=== PATIENT | male | born 1965 | race Caucasian/White ===

== ENCOUNTER 2017-06-21 23:22 | Inpatient (IN) ==
[2017-06-21] MEDS ORDERED: 0.9 % Sodium Chloride 1,000 ML IVC ONE (23:27)
[2017-06-21 23:48] LABS: Basophils # 0.1 K/mcL (0.0-0.2); Basophils % 0.5 %; Eosinophils # 0.2 K/mcL (0.0-0.6); Eosinophils % 1.2 %; Hematocrit 41.2 % (37.5-50.1); Hemoglobin 13.1 g/dL (12.9-16.9); Immature Granulocytes % 0.5 % (0-4); Lymphocytes # 3.3 K/mcL (0.6-4.6); Lymphocytes % 22.1 %; Mean Corpuscular HGB Conc 31.8 g/dL (31.6-35.5); Mean Corpuscular Hemoglobin 24.3 pg (28.0-33.3); Mean Corpuscular Volume 76.4 fL (83.0-100.0); Mean Platelet Volume 10.4 fL (9.4-12.4); Monocytes % 6.5 %; Neutrophils # 10.3 K/mcL (1.6-8.9); Platelet Count 404 K/mcL (140-400); Red Blood Count 5.39 M/mcL (4.19-5.50); Red Cell Distribution Width 16.3 % (11.5-14.5); Segmented Neutrophils % 69.2 %
[2017-06-21 23:53] LABS: INR 1.1; Prothrombin Time 11.4 Seconds (9.4-12.1)
[2017-06-22] MEDS ORDERED: 0.9 % Sodium Chloride 1,000 ML IVC ONE ×2 (00:11→00:57)
[2017-06-22 00:16] LABS: Alanine Aminotransferase 23 Units/L (7-52); Albumin 3.5 g/dL (3.5-5.7); Albumin/Globulin Ratio 1.3 (1.1-2.2); Alkaline Phosphatase 75 Units/L (34-104); Aspartate Amino Transferase 17 Units/L (13-39); BUN/Creatinine Ratio 14 (6-26); Bilirubin,Indirect 0.3 mg/dL (0.0-1.2); Bilirubin,Total 0.3 mg/dL (0.3-1.0); Blood Urea Nitrogen 17 mg/dL (6-20); Calcium 8.5 mg/dL (8.6-10.3); Carbon Dioxide 18 mEq/L (23-29); Chloride 108 mEq/L (98-107); Globulin 2.6 g/dL (2.4-3.5); Glucose 137 mg/dL (70-105); Lipase 24 Units/L (11-82); Osmolality,Calculated 286 (280-300); Sodium 136 mEq/L (136-145); Total Protein 6.1 g/dL (6.4-8.9); eGFR For African Americans > 60 (> 60); eGFR For Non-African Americans > 60 (> 60)
--- NOTE | 2017-06-22 00:19 | Emergency Department Note ---
Disposition Clinical Impression: Mesenteric hemorrhage, Lactic acidosis Syncope Qualifiers: Syncope type: unspecified Qualified Code(s): R55 - Syncope and collapse Abdominal hernia Qualifiers: Hernia type: other abdominal hernia Obstruction and gangrene presence: with obstruction but without gangrene Qualified Code(s): K45.0 - Other specified abdominal hernia with obstruction, without gangrene Disposition: Admitted As Inpatient Condition: Fair Time of Disposition: 01:24 Abdominal Pain HPI - General Chief Complaint: ED Abdominal Pain Stated Complaint: abd pain, syncope Time Seen by Provider: 06/21/17 23:25 Source: patient Mode of arrival: ambulatory Limitations: no limitations Nursing Notes Reviewed: Yes Vital Signs Reviewed: Yes - History of Present Illness HPI Narrative: 51-year-old male with history of Crohn's disease presents to the 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 He was brought pale and weak, he states he is having diffuse abdominal pain he reports a 6 out of 10 , he has no emesis, he denies fever chills recent productive cough. Pt Subjective Complaint: abdominal pain Onset (ago): hour(s) Consistency: intermittent Location: RUQ Pain Severity: moderate Pain Scale: 8 Quality: stabbing, aching Improves with: nothing Worsens with: nothing Associated symptoms: Reports: nausea. Denies: vomiting, diarrhea, fever, chills Treatments prior to arrival: none - Related Data Allergies Allergy/AdvReac Type Severity Reaction Status Date / Time No Known Allergies Allergy Verified 06/21/17 23:26 All systems ED: reviewed and negative except as stated. Review of Systems: As Per HPI Constitutional: Denies: fever, chills Eyes: Denies: eye pain ENT ED: Denies: ear pain Cardiovascular: Denies: chest pain Respiratory: Denies: cough Gastrointestinal: Reports: as per HPI, abdominal pain, nausea. Denies: hematemesis, melena Genitourinary: Denies: urgency Musculoskeletal: Denies: back pain, neck pain Integumentary: Denies: rash, abrasion Neurological: Denies: headache Psychiatric: Denies: anxiety Endocrine: Denies: fatigue Abdominal Pain PMH - Past Medical History Medical history: Reports: hypertension, other Male Surgical History: Reports: other - Social History Smoking status: Never smoker Alcohol use: Reports: none Drug use: Reports: none Physical Exam - General Limitations: no limitations General appearance: alert, in no apparent distress - Head Head exam: atraumatic - Eye Eye exam: Present: normal appearance - ENT ENT exam: normal exam, normal oropharynx - Neck Neck exam: Present: normal inspection, full ROM - Chest Chest inspection: Present: normal inspection - Respiratory Respiratory exam: Present: normal lung sounds bilaterally - Cardiovascular Cardiovascular exam: Present: regular rate, normal rhythm - Abdominal Exam Abdominal exam: Present: soft, tenderness, distention, hypoactive bowel sounds, hernia (Right abdomen able to partially reduce). Absent: guarding, rebound Abdominal tenderness: Present: diffuse, moderate Course Course Narrative: 51-year-old male status post syncopal event, he is brought in by the hospitalist to the emergency department, is hypotensive at 90/60, initial IVs and fluid resuscitation was initiated, patient has evidence of a right-sided abdominal wall hernia, and diffuse abdominal pain but no peritoneal signs, patient will be given IV fluids aching lab work CBC BMP lactic acid. - Reevaluation(s) Reevaluation #1: The patient had evidence of lactic acidosis at 2.7, leukocytosis of 14,000 was started on Zosyn empirically for coverage for potential infection intra- abdominal, he shows evidence of mesenteric bleeding and abdominal wall hernia that is incarcerated, I did discuss the case with the general surgeon Dr. Byrnes who recommended the patient be admitted to medicine service after speaking with the medicine service, they recommended transfer the patient because the patient was not can be evaluated by surgeon immediately, during this time we continued to resuscitate the patient he weighs 134 kg therefore gets 4 L of fluid for hypotension, after 2 L drain his blood pressure is now 112/70, he has more color in his face and the less pale, he is in no acute distress at this time, his abdominal pain is improved, we called the general surgeon back Dr. Jones who agreed to accept the patient to his service, on 3a indication for telemetry at this time as the patient is hemodynamically stable patient will continue IV fluid resuscitation broad-spectrum antibiotic coverage plan for admission to the general surgeon Vital Signs Temperature 97.5 F L 06/21/17 23:23 Pulse Rate 98 06/21/17 23:23 Respiratory Rate 20 06/21/17 23:23 Blood Pressure 95/69 06/21/17 23:23 O2 Sat by Pulse Oximetry 93 06/21/17 23:23 Temperature 98.1 F 06/22/17 02:49 Pulse Rate 82 06/22/17 02:49 Respiratory Rate 17 06/22/17 02:49 Blood Pressure 130/67 06/22/17 02:49 O2 Sat by Pulse Oximetry 95 06/22/17 02:49 Oxygen Delivery Oxygen Delivery Nasal Cannula Abdominal Pain - Differential Diagnosis Differential Diagnosis: Likely: abdominal pain non-specific, acute appendicitis , diverticulitis - Medical Records Medical records reviewed: Yes I reviewed the patient's medical records. - Lab Data Lab results reviewed: Yes I reviewed the patient's lab results. Result diagrams: 06/21/17 23:41 06/21/17 23:41 Lab Results 06/21/17 06/21/17 06/21/17 Range/Units 23:41 23:41 23:41 WBC (4.3-11.1) K/mcL RBC (4.19-5.50) M/mcL Hgb (12.9-16.9) g/dL Hct (37.5-50.1) % MCV (83.0-100.0) fL MCH (28.0-33.3) pg MCHC (31.6-35.5) g/dL RDW (11.5-14.5) % Plt Count (140-400) K/mcL MPV (9.4-12.4) fL Immature Gran % (0-4) % Seg Neutrophils % % Lymphocytes % % Monocytes % % Eosinophils % % Basophils % % Neutrophils # (1.6-8.9) K/mcL Lymphocytes # (0.6-4.6) K/mcL Monocytes # (0.0-1.3) K/mcL Eosinophils # (0.0-0.6) K/mcL Basophils # (0.0-0.2) K/mcL PT 11.4 (9.4-12.1) Seconds INR 1.1 APTT 24.0 L (26.0-36.0) Seconds Sodium (136-145) mEq/L Potassium (3.5-5.1) mEq/L Chloride (98-107) mEq/L Carbon Dioxide (23-29) mEq/L BUN (6-20) mg/dL Creatinine (0.70-1.30) mg/dL Est GFR ( Amer) (> 60) Est GFR (Non-Af Amer) (> 60) BUN/Creatinine Ratio (6-26) Glucose (70-105) mg/dL Calculated Osmolality (280-300) Lactic Acid 2.6 H (0.5-2.2) mmol/L Calcium (8.6-10.3) mg/dL Total Bilirubin (0.3-1.0) mg/dL Direct Bilirubin (0.0-0.2) mg/dL Indirect Bilirubin (0.0-1.2) mg/dL AST (13-39) Units/L ALT (7-52) Units/L Alkaline Phosphatase (34-104) Units/L Troponin I < 0.03 (< 0.04) ng/mL Serum Total Protein (6.4-8.9) g/dL Albumin (3.5-5.7) g/dL Globulin (2.4-3.5) g/dL Albumin/Globulin Ratio (1.1-2.2) Lipase (11-82) Units/L Urine Color (Yellow) Urine Clarity (Clear) Urine pH (5.0-8.0) pH Units Ur Specific [place] (1.010-1.025) Urine Protein (Neg-Trace) mg/dL Urine Glucose (UA) (Normal) mg/dL Urine Ketones (Negative) mg/dL Urine Blood (Negative) Urine Nitrite (Negative) Urine Bilirubin (Negative) Urine Urobilinogen (Normal) mg/dL Ur Leukocyte Esterase (Negative) Urine Microscopic RBC (0-3) per hpf Urine Microscopic WBC (0-3) per hpf Ur Squamous Epith Cells (None-Few) per lpf Urine Bacteria (None-Few) per hpf Hyaline Casts Ur Culture Indicated? (NO) 06/21/17 06/21/17 06/22/17 Range/Units 23:41 23:41 00:29 WBC 14.9 H (4.3-11.1) K/mcL RBC 5.39 (4.19-5.50) M/mcL Hgb 13.1 (12.9-16.9) g/dL Hct 41.2 (37.5-50.1) % MCV 76.4 L (83.0-100.0) fL MCH 24.3 L (28.0-33.3) pg MCHC 31.8 (31.6-35.5) g/dL RDW 16.3 H (11.5-14.5) % Plt Count 404 H (140-400) K/mcL MPV 10.4 (9.4-12.4) fL Immature Gran % 0.5 (0-4) % Seg Neutrophils % 69.2 % Lymphocytes % 22.1 % Monocytes % 6.5 % Eosinophils % 1.2 % Basophils % 0.5 % Neutrophils # 10.3 H (1.6-8.9) K/mcL Lymphocytes # 3.3 (0.6-4.6) K/mcL Monocytes # 1.0 (0.0-1.3) K/mcL Eosinophils # 0.2 (0.0-0.6) K/mcL Basophils # 0.1 (0.0-0.2) K/mcL PT (9.4-12.1) Seconds INR APTT (26.0-36.0) Seconds Sodium 136 (136-145) mEq/L Potassium 4.0 (3.5-5.1) mEq/L Chloride 108 H (98-107) mEq/L Carbon Dioxide 18 L (23-29) mEq/L BUN 17 (6-20) mg/dL Creatinine 1.19 (0.70-1.30) mg/dL Est GFR ( Amer) > 60 (> 60) Est GFR (Non-Af Amer) > 60 (> 60) BUN/Creatinine Ratio 14 (6-26) Glucose 137 H (70-105) mg/dL Calculated Osmolality 286 (280-300) Lactic Acid (0.5-2.2) mmol/L Calcium 8.5 L (8.6-10.3) mg/dL Total Bilirubin 0.3 (0.3-1.0) mg/dL Direct Bilirubin 0.0 (0.0-0.2) mg/dL Indirect Bilirubin 0.3 (0.0-1.2) mg/dL AST 17 (13-39) Units/L ALT 23 (7-52) Units/L Alkaline Phosphatase 75 (34-104) Units/L Troponin I (< 0.04) ng/mL Serum Total Protein 6.1 L (6.4-8.9) g/dL Albumin 3.5 (3.5-5.7) g/dL Globulin 2.6 (2.4-3.5) g/dL Albumin/Globulin Ratio 1.3 (1.1-2.2) Lipase 24 (11-82) Units/L Urine Color Yellow (Yellow) Urine Clarity Cloudy A (Clear) Urine pH 6.5 (5.0-8.0) pH Units Ur Specific [place] 1.026 H (1.010-1.025) Urine Protein 100 H (Neg-Trace) mg/dL Urine Glucose (UA) 100 H (Normal) mg/dL Urine Ketones Negative (Negative) mg/dL Urine Blood Negative (Negative) Urine Nitrite Negative (Negative) Urine Bilirubin Negative (Negative) Urine Urobilinogen Normal (Normal) mg/dL Ur Leukocyte Esterase Negative (Negative) Urine Microscopic RBC 5-15 H (0-3) per hpf Urine Microscopic WBC 3-5 H (0-3) per hpf Ur Squamous Epith Cells Many H (None-Few) per lpf Urine Bacteria None Seen (None-Few) per hpf Hyaline Casts Test Not Performed Ur Culture Indicated? NO (NO) 06/22/17 Range/Units 01:42 WBC (4.3-11.1) K/mcL RBC (4.19-5.50) M/mcL Hgb (12.9-16.9) g/dL Hct (37.5-50.1) % MCV (83.0-100.0) fL MCH (28.0-33.3) pg MCHC (31.6-35.5) g/dL RDW (11.5-14.5) % Plt Count (140-400) K/mcL MPV (9.4-12.4) fL Immature Gran % (0-4) % Seg Neutrophils % % Lymphocytes % % Monocytes % % Eosinophils % % Basophils % % Neutrophils # (1.6-8.9) K/mcL Lymphocytes # (0.6-4.6) K/mcL Monocytes # (0.0-1.3) K/mcL Eosinophils # (0.0-0.6) K/mcL Basophils # (0.0-0.2) K/mcL PT (9.4-12.1) Seconds INR APTT (26.0-36.0) Seconds Sodium (136-145) mEq/L Potassium (3.5-5.1) mEq/L Chloride (98-107) mEq/L Carbon Dioxide (23-29) mEq/L BUN (6-20) mg/dL Creatinine (0.70-1.30) mg/dL Est GFR ( Amer) (> 60) Est GFR (Non-Af Amer) (> 60) BUN/Creatinine Ratio (6-26) Glucose (70-105) mg/dL Calculated Osmolality (280-300) Lactic Acid 1.9 (0.5-2.2) mmol/L Calcium (8.6-10.3) mg/dL Total Bilirubin (0.3-1.0) mg/dL Direct Bilirubin (0.0-0.2) mg/dL Indirect Bilirubin (0.0-1.2) mg/dL AST (13-39) Units/L ALT (7-52) Units/L Alkaline Phosphatase (34-104) Units/L Troponin I (< 0.04) ng/mL Serum Total Protein (6.4-8.9) g/dL Albumin (3.5-5.7) g/dL Globulin (2.4-3.5) g/dL Albumin/Globulin Ratio (1.1-2.2) Lipase (11-82) Units/L Urine Color (Yellow) Urine Clarity (Clear) Urine pH (5.0-8.0) pH Units Ur Specific [place] (1.010-1.025) Urine Protein (Neg-Trace) mg/dL Urine Glucose (UA) (Normal) mg/dL Urine Ketones (Negative) mg/dL Urine Blood (Negative) Urine Nitrite (Negative) Urine Bilirubin (Negative) Urine Urobilinogen (Normal) mg/dL Ur Leukocyte Esterase (Negative) Urine Microscopic RBC (0-3) per hpf Urine Microscopic WBC (0-3) per hpf Ur Squamous Epith Cells (None-Few) per lpf Urine Bacteria (None-Few) per hpf Hyaline Casts Ur Culture Indicated? (NO) - Radiology Data Radiology results reviewed: Yes I reviewed the patient's radiology results. Chest X-Ray 06/21/17 23:32 IMPRESSION: No acute cardiopulmonary abnormality. D/ / Maynor Whatley / Maynor Whatley Interpreting Provider: Maynor Whatley Abdomen/Pelvis CT 06/22/17 23:32 IMPRESSION: 1. There appears to be hemorrhage within the mesentery, likely originating on the right. No definite source is seen. 2. Diverticulosis without scan evidence for diverticulitis. 3. Cholelithiasis without scan evidence for acute cholecystitis. D/ / José Luis Umanzor MD / José Luis Umanzor MD Interpreting Provider: José Luis Umanzor MD - EKG Data EKG attestation: Yes I reviewed and interpreted this EKG. EKG shows normal: sinus rhythm Rate: normal Rhythm: NSR [place]/QRS: normal - Core Measures AMI Core Measures Followed: No Attestation Statement - Attestation Attestation: DR Crystal note: Pt seen in conjunction w/ resident Dr. Johnson; please see his charting for complete documentation; I agree w/ pt's treatment and disposition; Please see his charting for complete documentation; face to face time spent w/ pt; pt had abd pain 4-5 days ago when straining w/ his bowel mvmt; vague abd pain since hat time and noted his right sided abd hernia was larger; pain was worse today after a bowel mvmt and pain caused pt to have a near syncopal event where he went to his knees w/o chest pain / headache or shortness of breath; admitted w/ normal heart rate and normal blood pressure; findings and CT results/labs discussed w/ surgeon Dr Salgado who accepted the pt as primary admission; abd fluid noted on CT scan;
[2017-06-22 01:00] LABS: Bilirubin,Urine Negative (Negative); Blood,Urine Negative (Negative); Clarity,Urine Cloudy (Clear); Color,Urine Yellow (Yellow); Glucose,Urine (UA) 100 mg/dL (Normal); Ketones,Urine Negative (Negative); Leukocyte Esterase,Urine Negative (Negative); Nitrite,Urine Negative (Negative); PH,Urine 6.5 pH Units (5.0-8.0); Protein,Urine 100 mg/dL (Neg-Trace); Specific Gravity,Urine 1.026 (1.010-1.025); Urobilinogen,Urine Normal (Normal)
[2017-06-22 01:02] LABS: Bacteria,Urine None Seen per hpf (None-Few); Squamous Epithelial Cell,Urine Many per lpf (None-Few)
[2017-06-22] MEDS ORDERED: Piperacillin/Tazobactam 3.375 GM in D5% in Water (Mini-Bag+) 100 ML IVPB ONE (01:11)
[2017-06-22] MEDS ORDERED: Piperacillin/Tazobactam 3.375 GM/200 ML BAG IVPB ONE (02:00)
[2017-06-22] MEDS ORDERED: Ondansetron 4 MG/2 ML VIAL IVP PRN (02:43)
[2017-06-22] MEDS: *HR* HYDROmorphone (PF) 1 MG/ML SYRINGE IVP PRN ×3 (03:08→09:35)
[2017-06-22] MEDS: *HR* OxyCODONE/APAP 10/325 TABLET PO PRN ×4 (04:59→23:24)
[2017-06-22 05:10] LABS: Hematocrit 36.7 % (37.5-50.1); Mean Corpuscular HGB Conc 30.8 g/dL (31.6-35.5); Mean Corpuscular Hemoglobin 24.4 pg (28.0-33.3); Mean Corpuscular Volume 79.3 fL (83.0-100.0); Mean Platelet Volume 11.1 fL (9.4-12.4); Platelet Count 364 K/mcL (140-400); Red Blood Count 4.63 M/mcL (4.19-5.50); Red Cell Distribution Width 16.5 % (11.5-14.5)
[2017-06-22 05:11] LABS: Basophils # 0.1 K/mcL (0.0-0.2); Basophils % 0.4 %; Eosinophils # 0.1 K/mcL (0.0-0.6); Eosinophils % 0.4 %; Immature Granulocytes % 0.5 % (0-4); Lymphocytes # 2.2 K/mcL (0.6-4.6); Lymphocytes % 16.1 %; Monocytes # 0.6 K/mcL (0.0-1.3); Monocytes % 4.6 %; Neutrophils # 10.8 K/mcL (1.6-8.9)
[2017-06-22 05:12] LABS: Hemoglobin 11.3 g/dL (12.9-16.9)
[2017-06-22 05:20] LABS: BUN/Creatinine Ratio 14 (6-26); Blood Urea Nitrogen 15 mg/dL (6-20); Calcium 7.3 mg/dL (8.6-10.3); Carbon Dioxide 25 mEq/L (23-29); Chloride 110 mEq/L (98-107); Glucose 118 mg/dL (70-105); Osmolality,Calculated 288 (280-300); Potassium 4.2 mEq/L (3.5-5.1); Sodium 138 mEq/L (136-145); eGFR For African Americans > 60 (> 60); eGFR For Non-African Americans > 60 (> 60)
[2017-06-22] MEDS: 0.9 % Sodium Chloride 1,000 ML IVC SCH ×2 (06:09→15:46)
--- NOTE | 2017-06-22 07:35 | General Surgery Consult Note ---
Date of Encounter: 06/22/17 Time of Encounter: 07:34 History of Present Illness Consult date: 06/22/17 Reason for consult: hernia Requesting physician: Jb Johnson History of present illness: 51-year-old male with history of Crohn's disease (per patient, in remission) presented to the ED yesterday s/p syncopal episode. Episode occured following a bowel movement. Pt stated walked outside of the bathroom, approx 5 minutes later felt lightheaded, and subsequently fell to his knees. The morning of incident, pt had experienced escalating abdominal pain. He ate despite the pain. Abdominal pain began as a 6/10 and escalated to a 10/10 by time of presentation to ED. The patient endorsed straining with stool for 3-4 days. No hematochezia. No hemetamesis. Pt's last colonoscopy was approx. 8 years ago. Past Med Surg Social Fam HX - Past Medical History Medical history: hypertension, other Psychiatric history: no psych history - Social History Smoking Status: Never smoker Smokeless Tobacco Status: No Alcohol use: none Drug use: none Medications and Allergies 3 Allergy/AdvReac Type Severity Reaction Status Date / Time No Known Allergies Allergy Verified 06/21/17 23:26 Review of Systems All systems PM: As documented above in the HPI. General Surgery Exam Initial Vital Signs Temp Pulse Resp BP Pulse Ox 97.5 F L 98 20 95/69 93 06/21/17 23:23 06/21/17 23:23 06/21/17 23:23 06/21/17 23:23 06/21/17 23:23 - General physical appearance well nourished, no distress - Eyes normal ocular movement - Respiratory normal expansion, normal respiratory effort, clear to auscultation - Cardiovascular Cardiovascular exam: Present: RRR, no murmurs/rubs/gallops - Abdomen Abdomen general surgery: Present: bowel sounds present, soft, non tender (large palpable hernia ) - Psychiatric Psychiatric general surgery: Present: appropriate, oriented to person, oriented to place, oriented to time, speech is normal Exam Initial Vital Signs Temp Pulse Resp BP Pulse Ox 97.5 F L 98 20 95/69 93 06/21/17 23:23 06/21/17 23:23 06/21/17 23:23 06/21/17 23:23 06/21/17 23:23 Results - Labs 06/22/17 03:32 06/22/17 03:32 Abnormal lab results WBC 13.9 K/mcL (4.3-11.1) H 06/22/17 03:32 Hgb 11.3 g/dL (12.9-16.9) L D 06/22/17 03:32 Hct 36.7 % (37.5-50.1) L 06/22/17 03:32 MCV 79.3 fL (83.0-100.0) L 06/22/17 03:32 MCH 24.4 pg (28.0-33.3) L 06/22/17 03:32 MCHC 30.8 g/dL (31.6-35.5) L 06/22/17 03:32 RDW 16.5 % (11.5-14.5) H 06/22/17 03:32 Neutrophils # 10.8 K/mcL (1.6-8.9) H 06/22/17 03:32 APTT 24.0 Seconds (26.0-36.0) L 06/21/17 23:41 Chloride 110 mEq/L (98-107) H 06/22/17 03:32 Glucose 118 mg/dL (70-105) H 06/22/17 03:32 POC Glucose 104 (58-89) H 06/22/17 05:21 Calcium 7.3 mg/dL (8.6-10.3) L 06/22/17 03:32 Serum Total Protein 6.1 g/dL (6.4-8.9) L 06/21/17 23:41 Urine Clarity Cloudy (Clear) A 06/22/17 00:29 Ur Specific [place] 1.026 (1.010-1.025) H 06/22/17 00:29 Urine Protein 100 mg/dL (Neg-Trace) H 06/22/17 00:29 Urine Glucose (UA) 100 mg/dL (Normal) H 06/22/17 00:29 Urine Microscopic RBC 5-15 per hpf (0-3) H 06/22/17 00:29 Urine Microscopic WBC 3-5 per hpf (0-3) H 06/22/17 00:29 Ur Squamous Epith Cells Many per lpf (None-Few) H 06/22/17 00:29 Diabetes panel 06/22/17 Range/Units 03:32 Sodium 138 (136-145) mEq/L Potassium 4.2 (3.5-5.1) mEq/L Chloride 110 H (98-107) mEq/L Carbon Dioxide 25 (23-29) mEq/L BUN 15 (6-20) mg/dL Creatinine 1.04 (0.70-1.30) mg/dL Glucose 118 H (70-105) mg/dL Calcium 7.3 L (8.6-10.3) mg/dL Calcium panel 06/22/17 Range/Units 03:32 Calcium 7.3 L (8.6-10.3) mg/dL Pituitary panel 06/22/17 Range/Units 03:32 Sodium 138 (136-145) mEq/L Potassium 4.2 (3.5-5.1) mEq/L Chloride 110 H (98-107) mEq/L Carbon Dioxide 25 (23-29) mEq/L BUN 15 (6-20) mg/dL Creatinine 1.04 (0.70-1.30) mg/dL Glucose 118 H (70-105) mg/dL Calcium 7.3 L (8.6-10.3) mg/dL Adrenal panel 06/22/17 Range/Units 03:32 Sodium 138 (136-145) mEq/L Potassium 4.2 (3.5-5.1) mEq/L Chloride 110 H (98-107) mEq/L Carbon Dioxide 25 (23-29) mEq/L BUN 15 (6-20) mg/dL Creatinine 1.04 (0.70-1.30) mg/dL Glucose 118 H (70-105) mg/dL Calcium 7.3 L (8.6-10.3) mg/dL All other labs normal. - Imaging CT scan - abdomen: report reviewed, image reviewed Additional studies: EXAMINATION: SINGLE VIEW OF THE CHEST 06/21/2017 11:48 pm COMPARISON: None. HISTORY: ORDERING SYSTEM PROVIDED HISTORY: Syncope Initial encounter acute illness. Difficulty breathing, shortness of breath, syncope, and bilateral upper quadrant abdominal pain just prior to arrival. FINDINGS: The lungs are clear. The cardiac and mediastinal contours are normal. There is no pleural effusion or pneumothorax. No acute osseous abnormality is identified. XR/XR chest 1V portable IMPRESSION: No acute cardiopulmonary abnormality. D/ / Maynor Whatley / Maynor Whatley Interpreting Provider: Maynor Whatley INATION: CT OF THE ABDOMEN AND PELVIS WITH CONTRAST 06/22/2017 12:42 am TECHNIQUE: CT of the abdomen and pelvis was performed with the administration of intravenous contrast. Multiplanar reformatted images are provided for review. Dose modulation, iterative reconstruction, and/or weight based adjustment of the mA/kV was utilized to reduce the radiation dose to as low as reasonably achievable. COMPARISON: None. HISTORY: ORDERING SYSTEM PROVIDED HISTORY: syncope abd pain 70 ml of ISOVUE [id number] FINDINGS: Lower Chest: There is bibasilar atelectasis. Organs: Low-attenuation of the liver suggests fatty infiltration. Cholelithiasis is noted without pericholecystic inflammation. The spleen, pancreas, adrenal glands and kidneys are unremarkable. GI/Bowel: Small bowel caliber is normal. The appendix is normal. There are descending and sigmoid colon diverticula without evidence for diverticulitis. Pelvis: The bladder is grossly negative though is nearly completely empty. Peritoneum/Retroperitoneum: Hemorrhagic ascites is seen within the abdomen and pelvis, primarily within the right side of the mesentery. There is no pneumoperitoneum. Aortic caliber is normal. Bones/Soft Tissues: A spigelian hernia is identified on the right. This contains fat and a small amount of hemorrhagic ascites. Mild lumbar spondylosis is noted. CT/CT abd pelvis w iv no oral IMPRESSION: 1. There appears to be hemorrhage within the mesentery, likely originating on the right. No definite source is seen. 2. Diverticulosis without scan evidence for diverticulitis. 3. Cholelithiasis without scan evidence for acute cholecystitis. D/ / José Luis Umanzor MD / José Luis Umanzor MD Interpreting Provider: José Luis Umanzor MD Consult Discharge Plan - Plan Referrals: NONE,PCP [Primary Care Provider] -
--- NOTE | 2017-06-22 09:35 | General Surg History&Physical ---
<Rosalba Shahid - Last Filed: 06/22/17 11:29> Date of Encounter: 06/22/17 Time of Encounter: 09:28 Assessment and Plan (1) Mesenteric hemorrhage Current Visit: Yes Status: Acute 06/22/CT identifying hemorrhagic ascites, with no evidence of source -CT reviewed - No evidence of perforated viscus or thrombosis in hepatic vein, mesenteric vasculature seen on CT. No evidence of necrosis or intestinal obstruction. May require sequential imaging even upon resolution if etiology not determined -Will continue close monitoring of pt's clinical status. Pt remains hemodynamically stable on floors. Last BP not recorded in EMR, per phone communication 119/73 -Continual close monitoring of vitals -Will follow H/H q12 hrs - Pt has additional GI history of Chron's and hemorrhoids, and [id number] up with providers - Will consult GI. Appreciate recs. (2) Abdominal hernia Current Visit: Yes Status: Acute -Reducible hernia on PE lateral to rectus muscle, consistent with 06/22/CT abdomen finding of Spigelian hernia -Plan for hernia repair following this hospitalization Qualifiers: Hernia type: other abdominal hernia Obstruction and gangrene presence: without obstruction or gangrene Qualified Code(s): K45.8 - Other specified abdominal hernia without obstruction or gangrene (3) DVT prophylaxis Current Visit: Yes Status: Acute History of Present Illness Chief complaint: Abdominal Pain HPI: 51-year-old male with history of Crohn's disease (per patient, in remission s/p Remicade) and hemorrhoids presented to the ED yesterday s/p syncopal episode. Episode occurred following a bowel movement. Pt stated he walked outside of the bathroom, approx 5 minutes later felt lightheaded, and subsequently fell to his knees. The morning of incident, pt had experienced escalating abdominal pain. Abdominal pain began as a 6/10 and escalated to a 10/10 by time of presentation to ED. Pain had previously been intermittent over past 5 days. He ate despite the pain. No post-prandial pain over 5-day history. No diarrhea. No "black, tarry stools". Does however endorse blood stools from hemorrhoids. No hemetamesis. The patient endorsed straining with stool for 3-4 days. Pt's last colonoscopy was approx. 8 years ago. Surgical Hx: Appendectomy Social Denies smoking. 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 General Surgery Exam Initial Vital Signs Temp Pulse Resp BP Pulse Ox 97.5 F L 98 20 95/69 93 06/21/17 23:23 06/21/17 23:23 06/21/17 23:23 06/21/17 23:23 06/21/17 23:23 VITAL SIGNS PER RN communication by phone- approx 10:35 BP 119/73 Pulse 98 Sat 89% with exertion, 90% on NC. - General physical appearance well developed, moderate pain - Eyes normal ocular movement - Respiratory normal expansion, normal respiratory effort, clear to auscultation - Cardiovascular Cardiovascular exam: Present: RRR. Absent: murmurs - Abdomen Abdomen general surgery: Present: bowel sounds present, soft (Obesity and a pendulous abdomen. Mild tendeness on palpation, large palpable mass lateral to rectus sheath. ), surgical scars. Absent: rebound Results - Labs 06/22/17 03:32 06/22/17 03:32 Abnormal lab results WBC 13.9 K/mcL (4.3-11.1) H 06/22/17 03:32 Hgb 11.3 g/dL (12.9-16.9) L D 06/22/17 03:32 Hct 36.7 % (37.5-50.1) L 06/22/17 03:32 MCV 79.3 fL (83.0-100.0) L 06/22/17 03:32 MCH 24.4 pg (28.0-33.3) L 06/22/17 03:32 MCHC 30.8 g/dL (31.6-35.5) L 06/22/17 03:32 RDW 16.5 % (11.5-14.5) H 06/22/17 03:32 Neutrophils # 10.8 K/mcL (1.6-8.9) H 06/22/17 03:32 APTT 24.0 Seconds (26.0-36.0) L 06/21/17 23:41 Chloride 110 mEq/L (98-107) H 06/22/17 03:32 Glucose 118 mg/dL (70-105) H 06/22/17 03:32 POC Glucose 104 (58-89) H 06/22/17 05:21 Calcium 7.3 mg/dL (8.6-10.3) L 06/22/17 03:32 Serum Total Protein 6.1 g/dL (6.4-8.9) L 06/21/17 23:41 Urine Clarity Cloudy (Clear) A 06/22/17 00:29 Ur Specific Sims 1.026 (1.010-1.025) H 06/22/17 00:29 Urine Protein 100 mg/dL (Neg-Trace) H 06/22/17 00:29 Urine Glucose (UA) 100 mg/dL (Normal) H 06/22/17 00:29 Urine Microscopic RBC 5-15 per hpf (0-3) H 06/22/17 00:29 Urine Microscopic WBC 3-5 per hpf (0-3) H 06/22/17 00:29 Ur Squamous Epith Cells Many per lpf (None-Few) H 06/22/17 00:29 Diabetes panel 06/22/17 Range/Units 03:32 Sodium 138 (136-145) mEq/L Potassium 4.2 (3.5-5.1) mEq/L Chloride 110 H (98-107) mEq/L Carbon Dioxide 25 (23-29) mEq/L BUN 15 (6-20) mg/dL Creatinine 1.04 (0.70-1.30) mg/dL Glucose 118 H (70-105) mg/dL Calcium 7.3 L (8.6-10.3) mg/dL Calcium panel 06/22/17 Range/Units 03:32 Calcium 7.3 L (8.6-10.3) mg/dL Pituitary panel 06/22/17 Range/Units 03:32 Sodium 138 (136-145) mEq/L Potassium 4.2 (3.5-5.1) mEq/L Chloride 110 H (98-107) mEq/L Carbon Dioxide 25 (23-29) mEq/L BUN 15 (6-20) mg/dL Creatinine 1.04 (0.70-1.30) mg/dL Glucose 118 H (70-105) mg/dL Calcium 7.3 L (8.6-10.3) mg/dL Adrenal panel 06/22/17 Range/Units 03:32 Sodium 138 (136-145) mEq/L Potassium 4.2 (3.5-5.1) mEq/L Chloride 110 H (98-107) mEq/L Carbon Dioxide 25 (23-29) mEq/L BUN 15 (6-20) mg/dL Creatinine 1.04 (0.70-1.30) mg/dL Glucose 118 H (70-105) mg/dL Calcium 7.3 L (8.6-10.3) mg/dL All other labs normal. - Imaging Chest x-ray: report reviewed CT scan - abdomen: report reviewed, image reviewed Additional studies: EXAMINATION: SINGLE VIEW OF THE CHEST 06/21/2017 11:48 pm COMPARISON: None. HISTORY: ORDERING SYSTEM PROVIDED HISTORY: Syncope Initial encounter acute illness. Difficulty breathing, shortness of breath, syncope, and bilateral upper quadrant abdominal pain just prior to arrival. FINDINGS: The lungs are clear. The cardiac and mediastinal contours are normal. There is no pleural effusion or pneumothorax. No acute osseous abnormality is identified. XR/XR chest 1V portable IMPRESSION: No acute cardiopulmonary abnormality. D/ / Maynor Whatley / Maynor Whatley Interpreting Provider: Maynor Whatley INATION: CT OF THE ABDOMEN AND PELVIS WITH CONTRAST 06/22/2017 12:42 am TECHNIQUE: CT of the abdomen and pelvis was performed with the administration of intravenous contrast. Multiplanar reformatted images are provided for review. Dose modulation, iterative reconstruction, and/or weight based adjustment of the mA/kV was utilized to reduce the radiation dose to as low as reasonably achievable. COMPARISON: None. HISTORY: ORDERING SYSTEM PROVIDED HISTORY: syncope abd pain 70 ml of ISOVUE 370 FINDINGS: Lower Chest: There is bibasilar atelectasis. Organs: Low-attenuation of the liver suggests fatty infiltration. Cholelithiasis is noted without pericholecystic inflammation. The spleen, pancreas, adrenal glands and kidneys are unremarkable. GI/Bowel: Small bowel caliber is normal. The appendix is normal. There are descending and sigmoid colon diverticula without evidence for diverticulitis. Pelvis: The bladder is grossly negative though is nearly completely empty. Peritoneum/Retroperitoneum: Hemorrhagic ascites is seen within the abdomen and pelvis, primarily within the right side of the mesentery. There is no pneumoperitoneum. Aortic caliber is normal. Bones/Soft Tissues: A spigelian hernia is identified on the right. This contains fat and a small amount of hemorrhagic ascites. Mild lumbar spondylosis is noted. CT/CT abd pelvis w iv no oral IMPRESSION: 1. There appears to be hemorrhage within the mesentery, likely originating on the right. No definite source is seen. 2. Diverticulosis without scan evidence for diverticulitis. 3. Cholelithiasis without scan evidence for acute cholecystitis. D/ / José Luis Umanzor MD / José Luis Umanzor MD Interpreting Provider: José Luis Umanzor MD <Chepe Salgado - Last Filed: 06/22/17 15:10> Date of Encounter: 06/22/17 History of Present Illness HPI: Mr. Jean is a 51 year old male Review of Systems All systems PM: A 10-system review of systems was performed and is negative for pertinent findings except as documented above in the HPI. General Surgery Exam Initial Vital Signs Temp Pulse Resp BP Pulse Ox 97.5 F L 98 20 95/69 93 06/21/17 23:23 06/21/17 23:23 06/21/17 23:23 06/21/17 23:23 06/21/17 23:23 Results - Labs 06/22/17 11:36 06/22/17 03:32 Abnormal lab results WBC 13.9 K/mcL (4.3-11.1) H 06/22/17 03:32 Hgb 11.2 g/dL (12.9-16.9) L 06/22/17 11:36 Hct 35.9 % (37.5-50.1) L 06/22/17 11:36 MCV 79.3 fL (83.0-100.0) L 06/22/17 03:32 MCH 24.4 pg (28.0-33.3) L 06/22/17 03:32 MCHC 30.8 g/dL (31.6-35.5) L 06/22/17 03:32 RDW 16.5 % (11.5-14.5) H 06/22/17 03:32 Neutrophils # 10.8 K/mcL (1.6-8.9) H 06/22/17 03:32 APTT 24.0 Seconds (26.0-36.0) L 06/21/17 23:41 Chloride 110 mEq/L (98-107) H 06/22/17 03:32 Glucose 118 mg/dL (70-105) H 06/22/17 03:32 POC Glucose 122 (58-89) H 06/22/17 11:56 Calcium 7.3 mg/dL (8.6-10.3) L 06/22/17 03:32 Serum Total Protein 6.1 g/dL (6.4-8.9) L 06/21/17 23:41 Urine Clarity Cloudy (Clear) A 06/22/17 00:29 Ur Specific Sims 1.026 (1.010-1.025) H 06/22/17 00:29 Urine Protein 100 mg/dL (Neg-Trace) H 06/22/17 00:29 Urine Glucose (UA) 100 mg/dL (Normal) H 06/22/17 00:29 Urine Microscopic RBC 5-15 per hpf (0-3) H 06/22/17 00:29 Urine Microscopic WBC 3-5 per hpf (0-3) H 06/22/17 00:29 Ur Squamous Epith Cells Many per lpf (None-Few) H 06/22/17 00:29 Diabetes panel 06/22/17 Range/Units 03:32 Sodium 138 (136-145) mEq/L Potassium 4.2 (3.5-5.1) mEq/L Chloride 110 H (98-107) mEq/L Carbon Dioxide 25 (23-29) mEq/L BUN 15 (6-20) mg/dL Creatinine 1.04 (0.70-1.30) mg/dL Glucose 118 H (70-105) mg/dL Calcium 7.3 L (8.6-10.3) mg/dL Calcium panel 06/22/17 Range/Units 03:32 Calcium 7.3 L (8.6-10.3) mg/dL Pituitary panel 06/22/17 Range/Units 03:32 Sodium 138 (136-145) mEq/L Potassium 4.2 (3.5-5.1) mEq/L Chloride 110 H (98-107) mEq/L Carbon Dioxide 25 (23-29) mEq/L BUN 15 (6-20) mg/dL Creatinine 1.04 (0.70-1.30) mg/dL Glucose 118 H (70-105) mg/dL Calcium 7.3 L (8.6-10.3) mg/dL Adrenal panel 06/22/17 Range/Units 03:32 Sodium 138 (136-145) mEq/L Potassium 4.2 (3.5-5.1) mEq/L Chloride 110 H (98-107) mEq/L Carbon Dioxide 25 (23-29) mEq/L BUN 15 (6-20) mg/dL Creatinine 1.04 (0.70-1.30) mg/dL Glucose 118 H (70-105) mg/dL Calcium 7.3 L (8.6-10.3) mg/dL All other labs normal. - Attending Attestation I examined this patient and my medical decision-making was reviewed with the Resident Physician. I agree with the documented findings, disposition and treatment plan as described except to the extent set forth below. The patient is seen and evaluated in the morning rounds. I personally. The CAT scan. He appears to have had some fluid or bleeding in the right lower abdomen associated with and omental incarceration of an incisional hernia. I am concerned about the appearance of the distal small bowel. I am concerned that this may represent recurrent Crohn's disease. I have recommended gastroenterology evaluation with possible colonoscopy with evaluation the distal small bowel. He will require repair of incisional hernia in the future. His abdominal examination is fairly benign today with no evidence of guarding or rebound. Chepe Salgado MD FACS
[2017-06-22 11:42] LABS: Hematocrit 35.9 % (37.5-50.1); Hemoglobin 11.2 g/dL (12.9-16.9)
[2017-06-22 19:20] LABS: Hematocrit 31.5 % (37.5-50.1); Hemoglobin 9.9 g/dL (12.9-16.9)
[2017-06-23] MEDS: 0.9 % Sodium Chloride 1,000 ML IVC SCH ×2 (00:59→09:55)
[2017-06-23 07:23] LABS: Hematocrit 35.3 % (37.5-50.1)
--- NOTE | 2017-06-23 08:16 | Electrocardiograph Report ---
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
[2017-06-23] MEDS ORDERED: Acetaminophen/Aspirin/Caffeine TABLET PO PRN (09:35)
--- NOTE | 2017-06-23 10:04 | Discharge Summary ---
<Rachael Rock Funmi - Last Filed: 06/23/17 14:51> Date of Encounter: 06/23/17 - Discharge Medications Home Medications: Duloxetine HCl [Cymbalta] 60 mg PO DAILY 06/22/17 [History] Lisinopril [Zestril] 20 mg PO DAILY 06/22/17 [History] Metoprolol Succinate 50 mg PO DAILY 06/22/17 [History] Allergies/Adverse Reactions: 3 Allergy/AdvReac Type Severity Reaction Status Date / Time No Known Allergies Allergy Verified 06/21/17 23:26 General Surgery Exam Initial Vital Signs Temp Pulse Resp BP Pulse Ox 97.5 F L 98 20 95/69 93 06/21/17 23:23 06/21/17 23:23 06/21/17 23:23 06/21/17 23:23 06/21/17 23:23 Date of admission: 06/22/17 16:27 Primary care physician: PCP NONE - Patient Status Disposition: Home, Self-Care Condition: Fair - Discharge Instructions Instructions: Ventral Hernia (DC) Follow Up With: Chepe Salgado MD [Partnered Physician] - 07/13/17 10:10 am - Hospital Course Hospital course: Mr. Jean is a 51 year old male who has been treated for abdominal pain. His pain has resolved at this point. The CT has been reviewed by Dr. Leonardo and he recommends that the patient have his hernia repaired with Dr. Salgado and then he will plan to see in 3-6 months to further evaluate his Crohn's disease. - Time Spent with Patient Total time spent providing and/or coordinating discharge services: Labs on day of discharge: Labs from last 24 hours 06/23/17 06/23/17 06/23/17 06:54 05:26 00:19 Hgb 11.0 L Hct 35.3 L POC Glucose 86 102 H 06/22/17 19:14 Hgb 9.9 L Hct 31.5 L POC Glucose - Impressions ITS Impressions Abdomen/Pelvis CT 06/22/17 23:32 IMPRESSION: 1. There appears to be hemorrhage within the mesentery, likely originating on the right. No definite source is seen. 2. Diverticulosis without scan evidence for diverticulitis. 3. Cholelithiasis without scan evidence for acute cholecystitis. D/ / José Luis Umanzor MD / José Luis Umanzor MD Interpreting Provider: José Luis Umanzor MD <Rosalba Shahid - Last Filed: 06/23/17 16:08> Date of Encounter: 06/23/17 Time of Encounter: 10:03 - Discharge Diagnosis (1) Mesenteric hemorrhage Priority: Primary Status: Acute (2) Abdominal hernia Priority: Primary Status: Acute Qualifiers: Hernia type: other abdominal hernia Obstruction and gangrene presence: without obstruction or gangrene Qualified Code(s): K45.8 - Other specified abdominal hernia without obstruction or gangrene (3) DVT prophylaxis Priority: Secondary Status: Acute General Surgery Exam Initial Vital Signs Temp Pulse Resp BP Pulse Ox 97.5 F L 98 20 95/69 93 06/21/17 23:23 06/21/17 23:23 06/21/17 23:23 06/21/17 23:23 06/21/17 23:23 - General physical appearance no distress - Eyes normal ocular movement - Respiratory clear to auscultation, other (No crackles. No rales. ) - Cardiovascular Cardiovascular exam: Present: regular rhythm. Absent: murmurs Additional Comments: +S1,S2 - Abdomen Abdomen general surgery: Present: bowel sounds present, soft, non tender, masses (lateral to R rectus sheath) Date of admission: 06/22/17 16:27 Primary care physician: PCP NONE Consults: Gastroenterology Consult Discharging clinician: Rosalba Shahid Anticipated date of discharge: 06/23/17 - Patient Status Overall status at discharge: patient is progressing back to baseline - Diet and Activity Activity: increase activity as tolerated - Hospital Course Hospital course: Mr. Jean is a 51 year old male with history of Crohn's disease (per patient, in remission s/p Remicade) and hemorrhoids presented to the ED yesterday s/p syncopal episode. Episode occurred following a bowel movement. Pt stated he walked outside of the bathroom, approx 5 minutes later felt lightheaded, and subsequently fell to his knees. The morning of incident, pt had experienced escalating abdominal pain. Abdominal pain began as a 6/10 and escalated to a 10/ 10 by time of presentation to ED. Pain had previously been intermittent over past 5 days. He ate despite the pain. No post-prandial pain over 5-day history. No diarrhea. No "black, tarry stools". Did however endorse blood stools from hemorrhoids. No hemetamesis. The patient endorsed straining with stool for 3-4 days. Pt stated Chron's disease may be a possible past misdiagnosis. Pt's last colonoscopy was approx. [address] imaging demonstrated diverticulosis, cholelithiasis, hernia and hemorrhage within the mesentery with no identified source. Pt was evaluated by the surgical service for expectant management. Gastroenterology was consulted for additional consultation. Radiology recommends patient have follow-up CT abdomen imaging to identify source of hemorrrhagic ascites. - Time Spent with Patient Total time spent providing and/or coordinating discharge services: Procedures and tests throughout hospitalization: ITS Impressions Chest X-Ray 06/21/17 23:32 IMPRESSION: No acute cardiopulmonary abnormality. D/ / Maynor Whatley / Maynor Whatley Interpreting Provider: Maynor Whatley Abdomen/Pelvis CT 06/22/17 23:32 IMPRESSION: 1. There appears to be hemorrhage within the mesentery, likely originating on the right. No definite source is seen. 2. Diverticulosis without scan evidence for diverticulitis. 3. Cholelithiasis without scan evidence for acute cholecystitis. D/ / José Luis Umanzor MD / José Luis Umanzor MD Interpreting Provider: José Luis Umanzor MD Labs on day of discharge: Labs from last 24 hours 06/23/17 06/23/17 06/23/17 06:54 05:26 00:19 Hgb 11.0 L Hct 35.3 L POC Glucose 86 102 H 06/22/17 19:14 Hgb 9.9 L Hct 31.5 L POC Glucose - Impressions ITS Impressions Abdomen/Pelvis CT 06/22/17 23:32
[2017-06-23 11:25] VITALS: BP 144/85
--- NOTE | 2017-06-23 11:28 | Gastroenterology Consult Note ---
Date of Encounter: 06/23/17 Time of Encounter: 10:00 - Assessment and plan (1) History of Crohn's disease Current Visit: Yes Status: Acute Assessment and plan: Pt reports being treated with Remicade [address] A/P concerning for recurrent Crohn's. Consider colonoscopy inpatient vs outpatient. Dr. Leonardo to review imaging and make determination. (2) Abdominal hernia Current Visit: Yes Status: Acute Assessment and plan: Management per Surgery. Qualifiers: Hernia type: other abdominal hernia Obstruction and gangrene presence: without obstruction or gangrene Qualified Code(s): K45.8 - Other specified abdominal hernia without obstruction or gangrene (3) Mesenteric hemorrhage Current Visit: Yes Status: Acute - Time Spent With Patient Total time spent is greater than 50% in coordination of care (as documented) at patient's floor/unit and/or counseling patient: GI History of Present Illness - Data of Consult Patient: new to practice Consult date: 06/23/17 Requesting Physician: Chepe Salgado MD - Consult Narrative Reason for consult: Crohn's History of present illness: Mr. Jean is a 51 year old male with PMHx of HTN, Crohn's disease (per patient, in remission s/p Remicade), and hemorrhoids who presented to the ED s/p syncopal episode following a bowel movement. Pt stated he walked outside of the bathroom, approx 5 minutes later felt lightheaded, and subsequently fell to his knees. The morning of incident, pt had experienced escalating abdominal pain. Abdominal pain began as a 6/10 and escalated to a 10/10 by time of presentation to ED. He denies fever, chills, chest pain, shortness of breath, nausea, vomiting, hematemesis, melena, diarrhea. Pt reports being diagnosed with Crohn' s disease 18 years ago, and was treated with [address] A/P shows hemorrhagic ascites in the abdomen and pelvis, primarily within the right side of the mesentery, no definite source is seen, fatty liver. After reviewing the imaging, Dr. Salgado is concerned that this may represent recurrent Crohn's disease. Procedures: Colonoscopy 8 years ago by [facility]: Normal per patient report. NSAIDs: None Anticoagulation: None Past Med Surg Social Fam HX - Past Medical History Medical history: hypertension, other Psychiatric history: no psych history - Social History Smoking Status: Never smoker Smokeless Tobacco Status: No Alcohol use: none Drug use: none - Gastrointestinal Gastrointestinal: Present: as per HPI - Constitutional Constitutional: as per HPI - EENT Eyes: as per HPI Ears: Present: as per HPI Nose, mouth and throat: Present: as per HPI - Cardiovascular Cardiovascular ROS: Present: as per HPI - Respiratory Respiratory IM: Present: as per HPI - Genitourinary Genitourinary: Absent: change in color, Urinary frequency - Neurological ROS Neurological GI: Present: as per HPI - Hematologic/Lymphatic Hematologic/Lymphatic pediatric: Present: as per HPI - Musculoskeletal Musculoskeletal ROS GI: Present: as per HPI - Integumentary Integumentary GI: Present: as per HPI - Psychiatric ROS Psychiatric GI: Present: as per HPI - Endocrine Endocrine IM: Present: as per HPI - Constitutional Vitals: Temp Pulse Resp BP Pulse Ox 98.9 F 103 16 148/88 93 06/23/17 07:20 06/23/17 07:20 06/23/17 07:20 06/23/17 07:20 06/23/17 07:20 General appearance: Present: cooperative, A&O X 3, no acute distress, answers questions appropriately - Head Head exam: Present: atraumatic, normocephalic - Eye Eye exam: Present: normal appearance, sclera anicteric - ENT ENT exam: Present: mucous membranes dry - Neck Neck exam general surgery: Present: normal inspection, trachea midline - Respiratory Respiratory exam: Present: CTAB. Absent: rales, rhonchi - Cardiovascular Cardiovascular exam: Present: RRR, +S1, +S2 - GI/Abdominal GI/Abdominal exam: Present: soft, tenderness (RLQ), no peritoneal signs. Absent : distended, firm, guarding - Rectal Rectal exam: Present: deferred - Extremities Exam Extremities exam: Present: warm - Neurological Exam Neurological exam: Present: no focal deficits - Psychiatric Psychiatric exam: Present: normal affect, normal mood - Skin Skin exam: Present: dry, intact, normal color, warm Results - Labs CBC & Chem 7: 06/23/17 06:54 06/22/17 03:32 Labs: Last Result Calcium 7.3 mg/dL (8.6-10.3) L 06/22/17 03:32 Troponin I < 0.03 ng/mL (< 0.04) 06/21/17 23:41 Entire Visit Hgb 11.0 g/dL (12.9-16.9) L 06/23/17 06:54 Hct 35.3 % (37.5-50.1) L 06/23/17 06:54 PT 11.4 Seconds (9.4-12.1) 06/21/17 23:41 Total Bilirubin 0.3 mg/dL (0.3-1.0) 06/21/17 23:41 AST 17 Units/L (13-39) 06/21/17 23:41 ALT 23 Units/L (7-52) 06/21/17 23:41 Lipase 24 Units/L (11-82) 06/21/17 23:41 - ABG ABG results: PT/INR, D-dimer PT 11.4 Seconds (9.4-12.1) 06/21/17 23:41 Consult Discharge Plan - Plan Instructions: Ventral Hernia (DC) Referrals: Chepe Salgado MD [Partnered Physician] - 07/13/17 10:10 am NONE,PCP [Primary Care Provider] -
== END 2017-06-23 17:33 | disposition home or self-care (01) | DRG 394 ==
LOC: 3ANU 23:22 → EMEROO 23:22 → 3ANU 06-22 02:39
PROVIDERS: ADMIT Surgery; ATTEND Surgery